=== PATIENT | male | born 1970 | race African-American/Black ===

== ENCOUNTER → 2017-10-29 | Outpatient (CLI) | payer OTHER ==
--- NOTE | 2017-10-29 14:15 | XR ---
Cervical spine HISTORY: Neck pain 5 views of the cervical spine Correlation to MR cervical spine 09/01/2014 Reversal the normal cervical lordosis may be due to muscle spasm. Finding is stable. There is spondyl osis most notably at C4-5, C5-6. Minimal retrolisthesis grade 1 C5-6 again noted. Loss of disc height greatest at C4-5 and C5-6. Prevertebral soft tissues are normal. Cervical vertebral bodies show pres erved height and bone mineralization. Suspect a thoracic scoliosis, facet arthropathy. Lateral exten rick of endplate disc complex at C5-6 causes foraminal encroachment bilaterally. Right-sided foramina l encroachment present at C4-5 and C6-7. IMPRESSION: Degenerative disc disease and foraminal encroachment. Thoracic scoliosis and additional f indings above.
== END | disposition home or self-care (01) ==
LOC: RADXRMAIN 11:01
PROVIDERS: ATTEND Internal Medicine
DX: M50.30 Other cervical disc degeneration, unspecified cervical region (principal); M43.12 Spondylolisthesis, cervical region
CPT/HCPCS: 72050

== ENCOUNTER 2018-04-01 10:41 | Emergency (ER) | payer OTHER ==
[2018-04-01 10:51] VITALS: BP 124/86; PULSE 89; RESP 18; TEMP 97.8
--- NOTE | 2018-04-01 11:28 | ED ---
URI HPI - General Chief Complaint: Upper Respiratory Infection Stated Complaint: Chest cold Time Seen by Provider: 04/01/18 11:04 Source: patient, RN notes reviewed Mode of arrival: ambulatory Limitations: no limitations - History of Present Illness Initial Comments: 48-year-old male presents emergency Department chief complaint cough congestion. Patient states symptoms started yesterday. Patient states he has a productive cough and mild sinus congestion. He complains of sore throat. Denies ear pain, headache or dizziness. Patient states HIS kids at home are sick with similar symptoms are being treated currently. Patient reports fever at home. Patient denies relief with NyQuil last night. Patient denies chest pain, nausea vomiting diarrhea constipation. - Related Data Home Medications Medication Instructions Recorded Confirmed Ascorbic Acid [Vitamin C] 500 mg PO DAILY 04/01/18 04/01/18 Cyanocobalamin (Vitamin B-12) 1,000 mcg PO DAILY 04/01/18 04/01/18 [Vitamin B-12] Vitamin E 1 cap PO DAILY 04/01/18 04/01/18 Previous Rx's Medication Instructions Recorded Azithromycin [Zithromax Z-pack] 0 mg PO DIRECTED #1 pack 04/01/18 predniSONE 50 mg PO DAILY #5 tab 04/01/18 Allergies Allergy/AdvReac Type Severity Reaction Status Date / Time ibuprofen Allergy Itching Verified 04/01/18 11:08 Review of Systems ROS Statement: Those systems with pertinent positive or pertinent negative responses have been documented in the HPI. ROS Other: All systems not noted in ROS Statement are negative. Past Medical History Additional Past Medical History / Comment(s): "bulging disc in neck and back", carpal tunnel lt hand History of Any Multi-Drug Resistant Organisms: None Reported Additional Past Surgical History / Comment(s): repair tendon rt hand Past Anesthesia/Blood Transfusion Reactions: No Reported Reaction Past Psychological History: Anxiety Smoking Status: Current every day smoker Past Alcohol Use History: Occasional Past Drug Use History: None Reported - Past Family History Father Family Medical History: Cancer Mother Family Medical History: Cancer Sister(s) Family Medical History: Cancer General Exam Limitations: no limitations General appearance: alert, in no apparent distress Head exam: Present: atraumatic, normocephalic, normal inspection Eye exam: Present: normal appearance, PERRL, EOMI. Absent: scleral icterus, conjunctival injection, periorbital swelling ENT exam: Present: mucous membranes moist, TM's normal bilaterally, normal external ear exam. Absent: normal exam, normal oropharynx (Posterior pharynx erythematous) Neck exam: Present: normal inspection, full ROM. Absent: tenderness, meningismus, lymphadenopathy Respiratory exam: Present: wheezes (Faint). Absent: normal lung sounds bilaterally, respiratory distress, rales, rhonchi, stridor Cardiovascular Exam: Present: regular rate, normal rhythm, normal heart sounds. Absent: systolic murmur, diastolic murmur, rubs, gallop, clicks Neurological exam: Present: alert, oriented X3, CN II-XII intact Skin exam: Present: warm, dry, intact, normal color. Absent: rash Course Vital Signs 04/01/18 10:49 Temperature 97.8 F Pulse Rate 89 Respiratory 18 Rate Blood Pressure 124/86 O2 Sat by Pulse 100 Oximetry Medical Decision Making - Medical Decision Making 48-year-old male present emergency from for sore throat, cough congestion. Chest x-ray shows no acute abnormality. Patient will be treated for his pharyngitis. Patient was likely the viral respiratory infection. Disposition Clinical Impression: Pharyngitis, Bronchitis Disposition: HOME SELF-CARE Condition: Stable Instructions (If sedation given, give patient instructions): Upper Respiratory Infection (ED) Additional Instructions: Please return to the Emergency Department if symptoms worsen or any other concerns. Prescriptions: Azithromycin [Zithromax Z-pack] 0 mg PO DIRECTED #1 pack predniSONE 50 mg PO DAILY #5 tab Is patient prescribed a controlled substance at d/c from ED?: No Referrals: Josesito Alex MD [Primary Care Provider] - 1-2 days Time of Disposition: 11:37
--- NOTE | 2018-04-01 11:31 | XR ---
EXAMINATION TYPE: XR chest 2V DATE OF EXAM: 04/01/2018 COMPARISON: NONE HISTORY: Cough congestion and fever for one day. TECHNIQUE: Frontal and lateral views of the chest are obtained. FINDINGS: There is no focal air space opacity, pleural effusion, or pneumothorax seen. The cardiac silhouette size is within normal limits. The osseous structures are intact. IMPRESSION: No acute cardiopulmonary process.
== END 2018-04-01 12:14 | disposition home or self-care (01) ==
LOC: EC 10:41
DX: J40 Bronchitis, not specified as acute or chronic (principal); J02.9 Acute pharyngitis, unspecified; F17.200 Nicotine dependence, unspecified, uncomplicated; Z88.6 Allergy status to analgesic agent
CPT/HCPCS: 71046; 99283

== ENCOUNTER 2018-07-09 09:59 | Emergency (ER) | payer OTHER ==
[2018-07-09 10:29] VITALS: RESP 18
[2018-07-09] MEDS ORDERED: OXYMETAZOLINE 0.05% NASL SPRAY 1 SPRAY BOTTLE NASAL STA (11:05)
--- NOTE | 2018-07-09 11:37 | ED ---
General Adult HPI - General Chief complaint: Upper Respiratory Infection Stated complaint: congestion, cough Time Seen by Provider: 07/09/18 10:54 Source: patient - History of Present Illness Initial comments: Patient is a 39-year-old male presenting to the emergency department with an upper respiratory infection symptoms. Patient reports a productive cough with sputum production that started since Saturday and has stayed the same. Patient reports a mild sore throat due to coughing. Patient reports clear rhinorrhea bilaterally. Patient reports being exposed to sick people at work. Patient reports taken ibuprofen with minimal improvement. Patient denies otalgia. Patient denies fever nausea vomiting or diarrhea. - Related Data Home Medications Medication Instructions Recorded Confirmed Dm/Acetaminophen/Doxylamine [Vicks 30 ml PO Q12H PRN 07/09/18 07/09/18 Nyquil Cold-Flu Liquid] Previous Rx's Medication Instructions Recorded Benzonatate [Tessalon Perles] 200 mg PO BID 7 Days capsule 07/09/18 Allergies Allergy/AdvReac Type Severity Reaction Status Date / Time ibuprofen Allergy Itching Verified 07/09/18 10:58 Review of Systems ROS Statement: Those systems with pertinent positive or pertinent negative responses have been documented in the HPI. ROS Other: All systems not noted in ROS Statement are negative. Past Medical History Additional Past Medical History / Comment(s): "bulging disc in neck and back", carpal tunnel lt hand History of Any Multi-Drug Resistant Organisms: None Reported Past Surgical History: Orthopedic Surgery Additional Past Surgical History / Comment(s): repair tendon rt hand Past Anesthesia/Blood Transfusion Reactions: No Reported Reaction Past Psychological History: Anxiety Smoking Status: Current every day smoker Past Alcohol Use History: Occasional Past Drug Use History: None Reported - Past Family History Father Family Medical History: Cancer Mother Family Medical History: Cancer Sister(s) Family Medical History: Cancer General Exam Limitations: no limitations General appearance: alert, in no apparent distress Head exam: Present: atraumatic, normocephalic, normal inspection Eye exam: Present: normal appearance, PERRL, EOMI. Absent: scleral icterus, conjunctival injection, periorbital swelling, periorbital tenderness Pupils: Present: normal accommodation ENT exam: Present: normal exam Expanded Ear exam: Present: normal external inspection TM/Canal exam: Cerumen Impaction: Right TM, Left TM (Norethin) Mouth exam: Present: normal external inspection. Absent: drooling, trismus, muffled voice Throat exam: normal inspection, tonsillar erythema (Mild). negative: tonsillomegaly, tonsillar exudate, R peritonsillar mass, L peritonsillar mass Neck exam: Present: normal inspection. Absent: tenderness, lymphadenopathy Respiratory exam: Present: normal lung sounds bilaterally. Absent: wheezes, rales, rhonchi, stridor Cardiovascular Exam: Present: regular rate, normal rhythm, normal heart sounds Neurological exam: Present: alert, oriented X3 Psychiatric exam: Present: normal affect, normal mood Skin exam: Present: warm Course Vital Signs 07/09/18 10:26 Temperature 97.9 F Pulse Rate 74 Respiratory 18 Rate Blood Pressure 116/82 O2 Sat by Pulse 100 Oximetry Medical Decision Making - Medical Decision Making This a 48-year-old presents emergency Department with upper spencers symptoms. Patient appears to have an upper respiratory infection and will be treated symptomatically. Patient was given Afrin well at the emergency department. Van boyle will be sent home with Micah fitzgerald. Patient advised follow with primary care. Patient advised to return to emergency department if symptoms persist for over 2 weeks. Case discussed with physician Disposition Clinical Impression: Common cold Disposition: HOME SELF-CARE Instructions (If sedation given, give patient instructions): Upper Respiratory Infection (ED) Additional Instructions: Please take medication as prescribed. Please follow up with primary care. Ple ase return to emergency department if symptoms worsen. Is patient prescribed a controlled substance at d/c from ED?: No Referrals: Josesito lAex MD [Primary Care Provider] - 1-2 days Time of Disposition: 11:39
[2018-07-09 11:54] VITALS: BP 110/85; PULSE 76; TEMP 98.3
== END 2018-07-09 11:54 | disposition home or self-care (01) ==
LOC: EC 09:59
DX: J00 Acute nasopharyngitis [common cold] (principal); F17.200 Nicotine dependence, unspecified, uncomplicated; Z88.6 Allergy status to analgesic agent
CPT/HCPCS: 99283

== ENCOUNTER 2019-02-13 20:10 | Emergency (ER) | payer OTHER ==
[2019-02-13 20:20] VITALS: PULSE 91; RESP 18; TEMP 97.8
[2019-02-13] MEDS ORDERED: MORPHINE SULFATE 4 MG/ML SYRINGE IVP STA (20:20)
[2019-02-13] MEDS ORDERED: DIPH,PERTUS(ACELL)TETVAC-LF 0.5 ML VIAL IM ONE (20:22)
[2019-02-13] MEDS ORDERED: ONDANSETRON 4 MG/2 ML VIAL IVP STA (20:22)
[2019-02-13] MEDS ORDERED: LIDOCAINE 1%-EPI 1:100,000 20 ML VIAL SQ ONE (20:23)
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
[2019-02-13] MEDS ORDERED: SODIUM CHLORIDE 0.9% 1,000 ML IV STA (21:11)
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
[2019-02-13 21:39] LABS: Basophils % (A) 0 %; Eosinophils # (A) 0.1 k/uL (0-0.7); Eosinophils % (A) 2 %; HCT 44.1 % (39.0-53.0); HGB 14.6 gm/dL (13.0-17.5); Lymphocytes # (A) 1.3 k/uL (1.0-4.8); Lymphocytes % (A) 28 %; MCH 30.6 pg (25.0-35.0); MCHC 33.2 g/dL (31.0-37.0); MCV 92.2 fL (80.0-100.0); Mean Platelet Volume 6.2; Monocytes # (A) 0.3 k/uL (0-1.0); Monocytes % (A) 6 %; Neutrophils # (A) 2.9 k/uL (1.3-7.7); Neutrophils % (A) 62 %; Platelet Count 259 k/uL (150-450); RBC 4.78 m/uL (4.30-5.90); RDW 12.5 % (11.5-15.5); WBC 4.8 k/uL (3.8-10.6)
[2019-02-13 21:47] LABS: Partial Thromboplastin Time 22.7 sec (22.0-30.0); Prothrombin Time 10.4 sec (9.0-12.0)
[2019-02-13 21:51] LABS: ALT 27 U/L (21-72); AST 29 U/L (17-59); African American GFR (CKD) 78 (>60 ml/min/1.73 sqM); Albumin 4.6 g/dL (3.5-5.0); Alcohol <10 mg/dL; Alkaline Phosphatase 69 U/L (38-126); Anion Gap 8 mmol/L; Blood Urea Nitrogen 12 mg/dL (9-20); Calcium 9.9 mg/dL (8.4-10.2); Carbon Dioxide 25 mmol/L (22-30); Chloride 104 mmol/L (98-107); Creatine Kinase 346 U/L (55-170); Glucose 93 mg/dL (74-99); Non-African American GFR(CKD) 68 (>60 ml/min/1.73 sqM); Potassium 4.1 mmol/L (3.5-5.1); Sodium 137 mmol/L (137-145); Total Bilirubin 0.6 mg/dL (0.2-1.3); Total Protein 7.4 g/dL (6.3-8.2)
[2019-02-13] MEDS ORDERED: MIDAZOLAM 1 MG/ML 5 ML VIAL IV STA (22:35)
[2019-02-13] MEDS ORDERED: MIDAZOLAM HCL 50 MG in SODIUM CHLORIDE 0.9% 40 ML IV SCH (22:45)
[2019-02-13 22:59] LABS: Appearance,Urine Clear (Clear); Bilirubin,Urine Negative (Negative); Blood,Urine Negative (Negative); Color,Urine Yellow; Glucose,Urine (UA) Negative (Negative); Ketones,Urine Negative (Negative); Leukocyte Esterase,Urine Negative (Negative); Nitrite,Urine Negative (Negative); PH, Urine 6.5 (5.0-8.0); Protein,Urine Trace (Negative); Specific Gravity,Urine 1.025 (1.001-1.035); Urobilinogen,Urine <2.0 mg/dL (<2.0)
[2019-02-13 23:12] LABS: Amphetamine Screen,Urine Detected (NotDetected); Barbiturate Screen,Urine Not Detected (NotDetected); Benzodiazepines Screen,Urine Not Detected (NotDetected); Cocaine Screen,Urine Detected (NotDetected); Methadone Screen, Urine Not Detected (NotDetected); Opiate Screen,Urine Detected (NotDetected); Oxycodone Screen, Urine Not Detected (NotDetected); Phencyclidine Screen,Urine Not Detected (NotDetected); Tricyclic Antidepressant,Urine Not Detected (NotDetected); Urn Cannabinoid Scrn Not Detected (NotDetected)
[2019-02-13 23:50] VITALS: BP 130/90
--- NOTE | 2019-02-16 06:21 | CDI ---
Dear Isac Rodriguez DO: Please do addendum whether any procedure done as Lidocaine/Epinephrine was administered to the Patient. Thank you, Rashad Mckinney, Stacker Driver. If you have any questions, please contact Accounting Manager at [phone]. [facility]
== END 2019-02-13 23:00 | disposition short-term general hospital (02) ==
LOC: EC 20:10
DX: S02.19XA Other fracture of base of skull, initial encounter for closed fracture (principal); G93.89 Other specified disorders of brain; S01.81XA Laceration without foreign body of other part of head, initial encounter; R10.9 Unspecified abdominal pain; S19.9XXA Unspecified injury of neck, initial encounter; F17.200 Nicotine dependence, unspecified, uncomplicated; Z88.6 Allergy status to analgesic agent; V23.4XXA Motorcycle driver injured in collision with car, pick-up truck or van in traffic accident, initial encounter; Y92.410 Unspecified street and highway as the place of occurrence of the external cause; Z53.20 Procedure and treatment not carried out because of patient's decision for unspecified reasons
CPT/HCPCS: 99291; 96374; 96375; 96361 ×2; 36415; 86900; 86901; 80053; 82550; 84484; 85025; 85610; 85730; 86850; 80306; 80320; 72125; 81003; 70486; 70450; J2270; J2405

== ENCOUNTER 2019-02-27 10:55 | Emergency (ER) | payer OTHER ==
[2019-02-27 11:25] VITALS: BP 120/85; PULSE 78; RESP 16; TEMP 98
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
[2019-02-27] MEDS ORDERED: Acetaminophen-Codeine 300-30mg TAB PO STA (12:32)
[2019-02-27] MEDS ORDERED: ACET/COD 300 MG/30 MG STARTER PACK 6 TAB BTL PO STA (12:32)
== END 2019-02-27 12:58 | disposition home or self-care (01) ==
LOC: EC 10:55
DX: S02.19XA Other fracture of base of skull, initial encounter for closed fracture (principal); Z76.0 Encounter for issue of repeat prescription; F17.200 Nicotine dependence, unspecified, uncomplicated; Z88.6 Allergy status to analgesic agent; V23.9XXA Unspecified motorcycle rider injured in collision with car, pick-up truck or van in traffic accident, initial encounter; Y92.410 Unspecified street and highway as the place of occurrence of the external cause
CPT/HCPCS: 99284

== ENCOUNTER → 2019-10-16 | Outpatient (CLI) | payer OTHER ==
--- NOTE | 2019-10-16 12:11 | XR ---
EXAMINATION TYPE: XR facial bones complete DATE OF EXAM: 10/16/2019 COMPARISON: NONE HISTORY: Pain TECHNIQUE: 3 views submitted FINDINGS: Mucosal thickening involving the maxillary ethmoid sinuses. No definite acute fracture. IMPRESSION: 1. No acute fracture correlate for sinusitis.
== END | disposition home or self-care (01) ==
LOC: RADXRMAIN 11:00
PROVIDERS: ATTEND Physical Medicine & Rehabilitation
DX: S02.85XA Fracture of orbit, unspecified, initial encounter for closed fracture (principal)
CPT/HCPCS: 70150

== ENCOUNTER 2022-11-29 08:01 | Emergency (ER) | payer OTHER ==
[2022-11-29 08:09] VITALS: RESP 18; TEMP 98
[2022-11-29] MEDS ORDERED: KETOROLAC 15 MG/ML 1 ML VIAL IM STA (08:31)
[2022-11-29] MEDS ORDERED: predniSONE 50 MG TAB PO STA (08:32)
[2022-11-29] MEDS ORDERED: LIDOCAINE 5% PATCH TOPICAL STA (08:32)
--- NOTE | 2022-11-29 08:36 | ED ---
Back Pain HPI - General Chief Complaint: Back Pain/Injury Stated Complaint: Lower Back Pain Time Seen by Provider: 11/29/22 08:14 Source: patient Limitations: no limitations - History of Present Illness Initial Comments: Patient is a 52-year-old male who presents to the emergency department with back pain. It started Saturday after lifting a heavy dresser. Patient has pain in his right lower back. There is radiation into the right thigh. He has some numbness and tingling in the right thigh as well. No numbness and tingling in the groin and buttock region. No loss of bowel or bladder function. No leg weakness. Patient was seen in urgent care and given Flexeril and Motrin with some improvement but states he is still having a lot of shooting pain with walking. - Related Data Home Medications Medication Instructions Recorded Confirmed Dm/Acetaminophen/Doxylamine [Vicks 30 ml PO Q12H PRN 07/09/18 07/09/18 Nyquil Cold-Flu Liquid] Previous Rx's Medication Instructions Recorded Benzonatate [Tessalon Perles] 200 mg PO BID 7 Days capsule 07/09/18 HYDROcodone/APAP 5-325MG [[place] 1 tab PO Q6HR PRN #12 tab 02/27/19 5-325] Lidocaine 5% Patch [Lidoderm 5% 1 patch TOPICAL DAILY PRN #7 patch 11/29/22 Patch] predniSONE 50 mg PO DAILY #4 tab 11/29/22 Allergies Allergy/AdvReac Type Severity Reaction Status Date / Time ibuprofen Allergy Itching Verified 11/29/22 08:07 Review of Systems ROS Statement: Those systems with pertinent positive or pertinent negative responses have been documented in the HPI. ROS Other: All systems not noted in ROS Statement are negative. Past Medical History Additional Past Medical History / Comment(s): "bulging disc in neck and back", carpal tunnel lt hand History of Any Multi-Drug Resistant Organisms: None Reported Past Surgical History: Orthopedic Surgery Additional Past Surgical History / Comment(s): repair tendon rt hand Past Anesthesia/Blood Transfusion Reactions: No Reported Reaction Past Psychological History: Anxiety Smoking Status: Current every day smoker, Vaper Past Alcohol Use History: Occasional Past Drug Use History: Marijuana - Past Family History Father Family Medical History: Cancer Mother Family Medical History: Cancer Sister(s) Family Medical History: Cancer General Exam Limitations: no limitations General appearance: alert Head exam: Present: atraumatic, normocephalic, normal inspection Eye exam: Present: normal appearance, PERRL, EOMI. Absent: scleral icterus, conjunctival injection, periorbital swelling Respiratory exam: Present: normal lung sounds bilaterally. Absent: respiratory distress, wheezes, rales, rhonchi, stridor Cardiovascular Exam: Present: regular rate, normal rhythm, normal heart sounds. Absent: systolic murmur, diastolic murmur, rubs, gallop, clicks Extremities exam: Present: normal inspection, full ROM, normal capillary refill Back exam: Present: normal inspection, full ROM, paraspinal tenderness (right lumbar). Absent: vertebral tenderness Neurological exam: Present: alert Expanded Sensory exam: Lower Extremity Light Touch: Normal Motor strength exam: RLE: 5, LLE: 5 Psychiatric exam: Present: normal affect, normal mood Skin exam: Present: warm, dry, intact, normal color. Absent: rash Course Vital Signs 11/29/22 11/29/22 08:03 08:45 Temperature 98 F 98 F Pulse Rate 72 70 Respiratory 18 18 Rate Blood Pressure 126/85 120/71 O2 Sat by Pulse 100 100 Oximetry Medical Decision Making - Medical Decision Making Was pt. sent in by a medical professional or institution (, PA, ELEMENTARY ESL TEACHER, urgent care, hospital, or care home...) When possible be specific @ -No Did you speak to anyone other than the patient for history (EMS, parent, family, police, friend...)? What history was obtained from this source @ -No Did you review nursing and triage notes (agree or disagree)? Why? @ -I reviewed and agree with nursing and triage notes Were old charts reviewed (outside hosp., previous admission, EMS record, old EKG, old radiological studies, urgent care reports/EKG's, care home records)? Report findings @ -No old charts were reviewed Differential Diagnosis (chest pain, altered mental status, abdominal pain women, abdominal pain men, vaginal bleeding, weakness, fever, dyspnea, syncope, he adache, dizziness, GI bleed, back pain, seizure, CVA, palpatations, mental health)? @ -Differential Back Pain: Strain, zoster, cauda equina syndrome, epidural abscess, vertebral o steomyelitis, discitis, fracture, subluxation, disc herniation, DJD, spinal stenosis, dissection, AAA, pancreatitis, peptic ulcer disease, pyelonephritis, kidney stone, this is not meant to be an all-inclusive list. EKG interpreted by me (3pts min.). @ -As above X-rays interpreted by me (1pt min.). @ -None done CT interpreted by me (1pt min.). @ -None done U/S interpreted by me (1pt. min.). @ -None done What testing was considered but not performed or refused? (CT, X-rays, U/S, labs)? Why? @ -Considered imaging of the spine however no midline tenderness. No neurological deficits on exam. What meds were considered but not given or refused? Why? @ -None Did you discuss the management of the patient with other professionals (professionals i.e. , PA, ELEMENTARY ESL TEACHER, lab, RT, psych nurse, delinquency prevention social worker, child care provider, teacher, corrections officer, manager case)? Give summary @ -No Was smoking cessation discussed for >3mins.? @ -No Was critical care preformed (if so, how long)? @ -No Were there social determinants of health that impacted care today? How? (Homelessness, low income, unemployed, alcoholism, drug addiction, transportation, low edu. Level, literacy, decrease access to med. care, prison, rehab)? @ -No Was there de-escalation of care discussed even if they declined (Discuss DNR or withdrawal of care, Hospice)? DNR status @ -No What co-morbidities impacted this encounter? (DM, HTN, Smoking, COPD, CAD, Cancer, CVA, ARF, Chemo, Hep., AIDS, mental health diagnosis, sleep apnea, morbid obesity)? @ -None] Was patient admitted / discharged? Hospital course, mention meds given and route, prescriptions, significant lab abnormalities, going to OR and other pertinent info. @ - Patient presenting with back pain. No presentation consistent with lumbar radiculopathy. No neurological deficits on exam. Patient already treated by urgent care with some improvement. Will add steroid for radicular symptoms as well as lidocaine patch. Patient to apply warm compress and practice warm stretches at home. He will follow-up with bibliographic services specialist for further evaluation and management. Undiagnosed new problem with uncertain prognosis? @ -[No] Drug Therapy requiring intensive monitoring for toxicity (Heparin, Nitro, Insulin, Cardizem)? @ -[No] Were any procedures done? @ -[No] Diagnosis/symptom? @ -Lumbar radiculopathy Acute, or Chronic, or Acute on Chronic? @ acute Uncomplicated (without systemic symptoms) or Complicated (systemic symptoms)? @ -uncomplicated Side effects of treatment? @ -[No] Exacerbation, Progression, or Severe Exacerbation? @ -[No] Poses a threat to life or bodily function? How? (Chest pain, [place], [place], pneumonia, PE, COPD, DKA, ARF, appy, cholecystitis, CVA, Diverticulitis, Homicidal, Suicidal, threat to staff... and all critical care pts) @ -[No] Dr. Cat is my attending Disposition Clinical Impression: Lumbar radiculopathy Disposition: HOME SELF-CARE Condition: Good Instructions (If sedation given, give patient instructions): Acute Low Back Pain (ED) Additional Instructions: Alternate Tylenol and Motrin for pain every 3-4 hours. Take prednisone as directed start tomorrow as you got a dose today in the emergency department. Continue Flexeril and use lidocaine patches as needed. Apply warm compress to the region. Follow-up with bibliographic services specialist in 1-2 days. Return to the emergency department experience new, concerning, or worsening symptoms. Prescriptions: Lidocaine 5% Patch [Lidoderm 5% Patch] 1 patch TOPICAL DAILY PRN #7 patch PRN Reason: Pain predniSONE 50 mg PO DAILY #4 tab Is patient prescribed a controlled substance at d/c from ED?: No Referrals: None,Stated [Primary Care Provider] - 1-2 days Vipul Garcia DO [Doctor of Osteopathic Medicine] - 1-2 days
[2022-11-29 08:47] VITALS: BP 120/71; PULSE 70
== END 2022-11-29 09:01 | disposition home or self-care (01) ==
LOC: EC 08:01
DX: M54.16 Radiculopathy, lumbar region (principal); F17.290 Nicotine dependence, other tobacco product, uncomplicated; F12.90 Cannabis use, unspecified, uncomplicated; Z88.6 Allergy status to analgesic agent; X50.0XXA Overexertion from strenuous movement or load, initial encounter
CPT/HCPCS: 99283; 96372; J1885; J7512

== ENCOUNTER 2023-02-05 08:33 | Emergency (ER) | payer OTHER ==
[2023-02-05] MEDS ORDERED: ONDANSETRON ODT 4 MG TAB PO STA (08:51)
[2023-02-05] MEDS ORDERED: DIPHENOX-ATROP 2.5-0.025 MG 1 EACH TAB PO STA (08:51)
[2023-02-05 09:01] VITALS: BP 123/91; PULSE 84; RESP 18; TEMP 98.5
--- NOTE | 2023-02-05 09:05 | ED ---
General Adult HPI - General Chief complaint: Nausea/Vomiting/Diarrhea Stated complaint: covid/flu symptoms Time Seen by Provider: 02/05/23 08:50 Source: patient, RN notes reviewed, old records reviewed Mode of arrival: ambulatory Limitations: no limitations - History of Present Illness Initial comments: This is a 53-year-old male who presents emergency Department stating he has been having vomiting diarrhea last day. Patient states his girlfriend had a few days ago and now he has same thing. Patient denies any fever but states he occasionally gets some chills. Patient states he has some body aches as well. Patient denies any abdominal pain. Patient denies any chest pain difficult breathing shortest breath per patient denies any blood in the stool or in the emesis. Patient denies any back pain. Patient denies any dysuria hematuria urinary frequency. - Related Data Home Medications Medication Instructions Recorded Confirmed Dm/Acetaminophen/Doxylamine [Vicks 30 ml PO Q12H PRN 07/09/18 07/09/18 Nyquil Cold-Flu Liquid] Previous Rx's Medication Instructions Recorded Benzonatate [Tessalon Perles] 200 mg PO BID 7 Days capsule 07/09/18 HYDROcodone/APAP 5-325MG [[place] 1 tab PO Q6HR PRN #12 tab 02/27/19 5-325] Lidocaine 5% Patch [Lidoderm 5% 1 patch TOPICAL DAILY PRN #7 patch 11/29/22 Patch] predniSONE 50 mg PO DAILY #4 tab 11/29/22 Allergies Allergy/AdvReac Type Severity Reaction Status Date / Time ibuprofen Allergy Itching Verified 02/05/23 08:51 Review of Systems ROS Statement: Those systems with pertinent positive or pertinent negative responses have been documented in the HPI. ROS Other: All systems not noted in ROS Statement are negative. Past Medical History Additional Past Medical History / Comment(s): "bulging disc in neck and back", carpal tunnel lt hand History of Any Multi-Drug Resistant Organisms: None Reported Past Surgical History: Orthopedic Surgery Additional Past Surgical History / Comment(s): repair tendon rt hand Past Anesthesia/Blood Transfusion Reactions: No Reported Reaction Past Psychological History: Anxiety Smoking Status: Current every day smoker, Vaper Past Alcohol Use History: Occasional Past Drug Use History: None Reported - Past Family History Father Family Medical History: Cancer Mother Family Medical History: Cancer Sister(s) Family Medical History: Cancer General Exam - General Exam Comments Initial Comments: GENERAL: Patient is well-developed and well-nourished. Patient is nontoxic and well- hydrated and is in mild distress. ENT: Neck is soft and supple. No significant lymphadenopathy is noted. Oropharynx is clear. Moist mucous membranes. Neck has full range of motion without eliciting any pain. EYES: The sclera were anicteric and conjunctiva were pink and moist. Extraocular movements were intact and pupils were equal round and reactive to light. Eyelids were unremarkable. PULMONARY: Unlabored respirations. Good breath sounds bilaterally. No audible rales rhonchi or wheezing was noted. CARDIOVASCULAR: There is a regular rate and rhythm without any murmurs gallops or rubs. ABDOMEN: Soft and nontender with normal bowel sounds. SKIN: Skin is clear with no lesions or rashes and otherwise unremarkable. NEUROLOGIC: Patient is alert and oriented x3. Cranial nerves II through XII are grossly intact. Motor and sensory are also intact. Normal speech, volume and content. Symmetrical smile. MUSCULOSKELETAL: Normal extremities with adequate strength and full range of motion. LYMPHATICS: No significant lymphadenopathy is noted PSYCHIATRIC: Normal psychiatric evaluation. Limitations: no limitations Course Vital Signs 02/05/23 08:48 Temperature 98.5 F Pulse Rate 84 Respiratory 18 Rate Blood Pressure 123/91 O2 Sat by Pulse 100 Oximetry Medical Decision Making - Medical Decision Making Was pt. sent in by a medical professional or institution (SATISH Galloway, SIGNS AND DISPLAYS SALESPERSON, urgent care, hospital, or group home...) When possible be specific @ -No Did you speak to anyone other than the patient for history (EMS, parent, family, police, friend...)? What history was obtained from this source @ -No Did you review nursing and triage notes (agree or disagree)? Why? @ -I reviewed and agree with nursing and triage notes Were old charts reviewed (outside hosp., previous admission, EMS record, old EKG, old radiological studies, urgent care reports/EKG's, group home records)? Report findings @ -No old charts were reviewed Differential Diagnosis (chest pain, altered mental status, abdominal pain women, abdominal pain men, vaginal bleeding, weakness, fever, dyspnea, syncope, headache, dizziness, GI bleed, back pain, seizure, CVA, palpatations, mental health, musculoskeletal)? @ -Differential Abdominal Pain Men: Appendicitis, cholecystitis, diverticulosis, ischemic bowel, pancreatitis, hepat itis, UTI, gastroenteritis, AAA, incarcerated hernia, bowel obstruction, constipation, inflammatory bowel, hepatitis, peptic ulcer disease, splenic infarction, perforated viscus, testicular torsion, this is not meant to be an all-inclusive list EKG interpreted by me (3pts min.). @ -As above X-rays interpreted by me (1pt min.). @ -None done CT interpreted by me (1pt min.). @ -None done U/S interpreted by me (1pt. min.). @ -None done What testing was considered but not performed or refused? (CT, X-rays, U/S, labs)? Why? @ -None What meds were considered but not given or refused? Why? @ -None Did you discuss the management of the patient with other professionals (professionals i.e. , PA, SIGNS AND DISPLAYS SALESPERSON, lab, RT, psych nurse, web content & social media manager, director audience marketing, teacher, special weapons unit officer, registered nurse hh case manager)? Give summary @ -No Was smoking cessation discussed for >3mins.? @ -No Was critical care preformed (if so, how long)? @ -No Were there social determinants of health that impacted care today? How? (Homelessness, low income, unemployed, alcoholism, drug addiction, transportation, low edu. Level, literacy, decrease access to med. care, penitentiary, rehab)? @ -No Was there de-escalation of care discussed even if they declined (Discuss DNR or withdrawal of care, Hospice)? DNR status @ -No What co-morbidities impacted this encounter? (DM, HTN, Smoking, COPD, CAD, Cancer, CVA, ARF, Chemo, Hep., AIDS, mental health diagnosis, sleep apnea, morbid obesity)? @ -None Was patient admitted / discharged? Hospital course, mention meds given and route, prescriptions, significant lab abnormalities, going to OR and other pertinent info. @ -Patient was given Lomotil and Zofran emergency department no longer had any vomiting or diarrhea in the emergency department. Umbilical test was done that was negative. Undiagnosed new problem with uncertain prognosis? @ -No Drug Therapy requiring intensive monitoring for toxicity (Heparin, Nitro, Insulin, Cardizem)? @ -No Were any procedures done? @ -No Diagnosis/symptom? @ -Gastroenteritis Acute, or Chronic, or Acute on Chronic? @ -Acute Uncomplicated (without systemic symptoms) or Complicated (systemic symptoms)? @ -Complicated Side effects of treatment? @ -No Exacerbation, Progression, or Severe Exacerbation? @ -[No] Poses a threat to life or bodily function? How? (Chest pain, [place], [place], pneumonia, PE, COPD, DKA, ARF, appy, cholecystitis, CVA, Diverticulitis, Homicidal, Suicidal, threat to staff... and all critical care pts) @ -[No] - Lab Data Lab Results 02/05/23 Range/Units 10:00 SARS-CoV-2 (PCR) Not Detected (Not Detectd) Disposition Clinical Impression: Gastroenteritis Disposition: HOME SELF-CARE Instructions (If sedation given, give patient instructions): Gastroenteritis (ED) Is patient prescribed a controlled substance at d/c from ED?: No Referrals: None,Stated [Primary Care Provider] - 1-2 days Time of Disposition: 11:10
[2023-02-05] MEDS ORDERED: ONDANSETRON 4 MG ODT STARTER PACK 2 TAB BTL PO STA (11:28)
[2023-02-05] MEDS ORDERED: DIPHENOX-ATROP STARTER PACK 8 TAB BTL PO STA (11:28)
== END 2023-02-05 11:48 | disposition home or self-care (01) ==
LOC: EC 08:33
DX: K52.9 Noninfective gastroenteritis and colitis, unspecified (principal); F17.290 Nicotine dependence, other tobacco product, uncomplicated; Z88.6 Allergy status to analgesic agent; Z86.59 Personal history of other mental and behavioral disorders; Z20.822 Contact with and (suspected) exposure to COVID-19
CPT/HCPCS: 87635; 99284; S0119

== ENCOUNTER 2024-06-03 11:51 | Emergency (ER) | payer OTHER ==
--- NOTE | 2024-06-03 12:32 | ED ---
Head Injury HPI - General Chief complaint: Head Injury Stated complaint: R eye injury Time Seen by Provider: 06/03/24 12:26 Source: patient, RN notes reviewed Mode of arrival: ambulatory - History of Present Illness Initial comments: 54-year-old male presenting for right eye injury 3 days ago. States Saturday he ran into a metal food tray on a cart, striking his right eyebrow. Denies loss of consciousness but states he felt dizzy after the incident. Since then, he reports pain and aching behind the right eye. Today when he woke up he noticed right-sided blurry vision for a moment before returning to normal. States he is unsure if this is because he had just woken up or if it is from the injury. Denies foreign body sensation in eye. Denies current vision changes. Denies blood thinners. Last tetanus was 3 years ago. No other injuries. - Related Data Home Medications Medication Instructions Recorded Confirmed No Known Home Medications 02/05/23 02/05/23 Allergies/Adverse reactions: Allergies Allergy/AdvReac Type Severity Reaction Status Date / Time ibuprofen Allergy Itching Verified 06/03/24 12:05 Review of Systems ROS Statement: Those systems with pertinent positive or pertinent negative responses have been documented in the HPI. ROS Other: All systems not noted in ROS Statement are negative. Past Medical History Additional Past Medical History / Comment(s): "bulging disc in neck and back", carpal tunnel lt hand History of Any Multi-Drug Resistant Organisms: None Reported Past Surgical History: Orthopedic Surgery Additional Past Surgical History / Comment(s): repair tendon rt hand Past Anesthesia/Blood Transfusion Reactions: No Reported Reaction Past Psychological History: Anxiety Smoking Status: Current every day smoker, Vaper Past Alcohol Use History: Occasional Past Drug Use History: None Reported - Past Family History Father Family Medical History: Cancer Mother Family Medical History: Cancer Sister(s) Family Medical History: Cancer General Exam General appearance: alert, in no apparent distress Head exam: Present: normocephalic. Absent: normal inspection (There is a 1 cm abrasion present on right eyebrow with no active bleeding. Mild tenderness to palpation along the eyebrow.) Eye exam: Present: PERRL, EOMI, other (Fluorescein stain negative for corneal abrasion, ulceration, or foreign body. Right Intraocular pressure 11 ). Absent: normal appearance (Cataract of right eye), scleral icterus, conjunctival injection, periorbital swelling ENT exam: Present: normal exam, mucous membranes moist Neck exam: Present: normal inspection. Absent: tenderness, meningismus, lymphadenopathy Neurological exam: Present: alert, oriented X3, CN II-XII intact Psychiatric exam: Present: normal affect, normal mood Skin exam: Present: warm, dry, intact, normal color. Absent: rash Course Vital Signs 06/03/24 12:01 Temperature 98.2 F Pulse Rate 89 Respiratory 18 Rate Blood Pressure 119/67 O2 Sat by Pulse 100 Oximetry Medical Decision Making - Medical Decision Making Was pt. sent in by a medical professional or institution (, PA, OPTICAL LABORATORY TECHNICIAN, urgent care, hospital, or [facility]...) When possible be specific @ -No Did you speak to anyone other than the patient for history (EMS, parent, family, police, friend...)? What history was obtained from this source @ -No Did you review nursing and triage notes (agree or disagree)? Why? @ -I reviewed and agree with nursing and triage notes Were old charts reviewed (outside hosp., previous admission, EMS record, old EKG, old radiological studies, urgent care reports/EKG's, [facility] records)? Report findings @ -No old charts were reviewed Differential Diagnosis (chest pain, altered mental status, abdominal pain women, abdominal pain men, vaginal bleeding, weakness, fever, dyspnea, syncope, headache, dizziness, GI bleed, back pain, seizure, CVA, palpatations, mental health, musculoskeletal)? @ -Differential Musculoskeletal Ocular foreign body, intracranial bleed, muscular strain, contusion, ligament sprain, fracture, arthritis, septic arthritis, bursitis, cellulitis, muscle spasm, nerve compression, DVT, arterial occlusion, herpes zoster, electrolyte abnormality, tumor.... This is not meant to be in all inclusive list EKG interpreted by me (3pts min.). @ -None X-rays interpreted by me (1pt min.). @ -None done CT interpreted by me (1pt min.). @ -CT brain and facial bones reveals no acute process U/S interpreted by me (1pt. min.). @ -None done What testing was considered but not performed or refused? (CT, X-rays, U/S, labs )? Why? @ -None What meds were considered but not given or refused? Why? @ -None Did you discuss the management of the patient with other professionals (professionals i.e. Dr., PA, OPTICAL LABORATORY TECHNICIAN, lab, RT, psych nurse, medical social consultant, membership director, teacher, senior administrative services officer, case management manager)? Give summary @ -No Was smoking cessation discussed for >3mins.? @ -No Was critical care preformed (if so, how long)? @ -No Were there social determinants of health that impacted care today? How? (Homelessness, low income, unemployed, alcoholism, drug addiction, transportation, low edu. Level, literacy, decrease access to med. care, prison, rehab)? @ -No Was there de-escalation of care discussed even if they declined (Discuss DNR or withdrawal of care, Hospice)? DNR status @ -No What co-morbidities impacted this encounter? (DM, HTN, Smoking, COPD, CAD, Cancer, CVA, ARF, Chemo, Hep., AIDS, mental health diagnosis, sleep apnea, morbid obesity)? @ -None Was patient admitted / discharged? Hospital course, mention meds given and route, prescriptions, significant lab abnormalities, going to OR and other pertinent info. @ -Discharge. 54-year-old male presenting for right eye injury 3 days ago after striking his right eyebrow on a metal food tray. Denies loss of consciousness or blood thinners but is endorsing pain behind the right eye and has tenderness along the right eyebrow. Neurological examination is unremarkable. Fluorescein stain is negative for abrasions, ulcerations, or foreign body. CT brain and facial bones reveals no acute process. Discussed results with patient. Appropriate return precautions and follow-up care discussed. Case was discussed with my ED attending Dr. Cotter. Undiagnosed new problem with uncertain prognosis? @ -No Drug Therapy requiring intensive monitoring for toxicity (Heparin, Nitro, Insulin, Cardizem)? @ -No Were any procedures done? @ -No Diagnosis/symptom? @ -Head injury Acute, or Chronic, or Acute on Chronic? @ -Acute Uncomplicated (without systemic symptoms) or Complicated (systemic symptoms)? @ -Complicated Side effects of treatment? @ -No Exacerbation, Progression, or Severe Exacerbation? @ -No Poses a threat to life or bodily function? How? (Chest pain, [place], [place], pneumonia, PE, COPD, DKA, ARF, appy, cholecystitis, CVA, Diverticulitis, Homicidal, Suicidal, threat to staff... and all critical care pts) @ -Not at this time Disposition Clinical Impression: Head injury Disposition: HOME SELF-CARE Condition: Stable Instructions (If sedation given, give patient instructions): Head Injury (ED) Additional Instructions: Continue Tylenol as needed for pain. Please return to the Emergency Department if symptoms worsen or any other concerns. Is patient prescribed a controlled substance at d/c from ED?: No Referrals: None,Stated [Primary Care Provider] - 1-2 days Time of Disposition: 13:50
[2024-06-03] MEDS: FLUORESCEIN STRIPS 1 MG STRIP RIGHT EYE ONE (12:40)
[2024-06-03] MEDS: PROPARACAINE 0.5% OPHTH DROPS 15 ML BTL RIGHT EYE STA (12:40)
--- NOTE | 2024-06-03 12:51 | CT ---
EXAMINATION TYPE: CT brain wo con, CT facial bones wo con DATE OF EXAM: 06/03/2024 COMPARISON: Prior CT head February 13, 2019 CLINICAL INDICATION: Male, 54 years old with history of head injury, Hit head on Saturday with LOC. No thinners. C/O OSORIO. Facial pain. TECHNIQUE: CT scan of the head and facial bones are performed without contrast. CT DLP: Combined DLP of 1437.4 mGycm. Automated Exposure Control for Dose Reduction was Utilized. FINDINGS: There is no acute intracranial hemorrhage or midline shift identified. There is mild diff use ventricular and sulcal prominence with sulcal prominence greatest over the bilateral frontal lobe s. Cintron-white matter differentiation is preserved. The calvarium is intact. The mandible is intact. The temporomandibular joints are maintained bilaterally. The orbital floors a nd hernandez are intact. The globes are intact bilaterally. Intraconal fat is preserved. Zygomatic arches are intact. Nasal bones are intact. The pterygoid plates are intact. There is mild mucosal thickenin g posterior inferior aspect of the left maxillary sinus otherwise the paranasal sinuses are clear. Ri ght nasal soft tissue metallic ornament incidentally noted. IMPRESSION: 1. No acute intracranial hemorrhage or midline shift. 2. No acute displaced facial bone fracture. [facility], , 06/03/2024 12:48 PM
[2024-06-03 14:14] VITALS: BP 109/76; PULSE 80; RESP 16; TEMP 98
== END 2024-06-03 14:13 | disposition home or self-care (01) ==
LOC: EC 11:51
DX: S05.91XA Unspecified injury of right eye and orbit, initial encounter (principal); S09.90XA Unspecified injury of head, initial encounter; F17.290 Nicotine dependence, other tobacco product, uncomplicated; Z88.6 Allergy status to analgesic agent; W22.8XXA Striking against or struck by other objects, initial encounter
CPT/HCPCS: 70450; 70486; 99284